=== PATIENT | female | born 1965 | race Caucasian/White ===

== ENCOUNTER 2018-01-01 10:12 | Emergency (ER) | payer OTHER ==
[~2018-01-01] VITALS: Ht 157.5 cm; Wt 72.7 kg
[2018-01-01 10:16] VITALS: Ht 157.5 cm; Wt 72.7 kg
[2018-01-01 10:48] LABS: BASOPHILS 0.1 % (0-2); HEMOGLOBIN 12.5 g/dL (12-16); IMMATURE GRANULOCYTES 0.1 % (0-5); MCH 30.4 pg (26.0-34.0); MCHC 33.8 g/dL (31.0-37.0); MEAN PLATELET VOLUME 10.1 fL (7.4-10.4); MONOCYTES 6.4 % (2-11); NEUTROPHILS 78.4 % (40-80); PLATELET COUNT 185 10x3/uL (130-400); RBC 4.11 10x6/uL (4.00-5.40); WBC 7.3 10x3/uL (4.8-10.8)
[2018-01-01 11:03] LABS: APTT 27.2 SECONDS (22.8-39.4); INR 1.04 (0.85-1.17); PROTIME 13.2 SECONDS (11.6-15.0)
[2018-01-01 11:08] LABS: ALBUMIN 3.7 g/dL (3.4-5.0); ALKALINE PHOSPHATASE 65 U/L (46-116); ALT (SGPT) 19 U/L (10-68); BILIRUBIN - TOTAL 0.42 mg/dL (0.2-1.3); CALC OSMOLALITY 273 mosm/kg (275-300); CARBON DIOXIDE 26.6 mmol/L (21.0-32.0); CHLORIDE - SERUM 102 mmol/L (98-107); CREATININE - SERUM 0.7 mg/dL (0.6-1.3); GLUCOSE 96 mg/dL (74-106); POTASSIUM - SERUM 3.9 mmol/L (3.5-5.1); PROTEIN - SERUM 7.5 g/dL (6.4-8.2); SODIUM 138 mmol/L (136-145); UREA NITROGEN 8 mg/dL (7-18); eGFR NON AFRICAN AMERICAN > 90 mL/min (90-120)
[2018-01-01 11:24] LABS: CKMB 0.9 U/L (0.0-3.6); CREATINE KINASE 37 UL (21-215); MAGNESIUM - SERUM 1.7 mg/dL (1.8-2.4); TROPONIN-I < 0.017 ng/mL (0.000-0.060)
[2018-01-01 13:34] LABS: APPEARANCE CLEAR (CLEAR); BACTERIA FEW /hpf (NONE SEEN); BILIRUBIN NEGATIVE (NEGATIVE); COLOR YELLOW (YELLOW); EPITHELIAL CELLS RARE /hpf (0-5); GLUCOSE NEGATIVE (NEGATIVE); KETONE NEGATIVE (NEGATIVE); NITRITE NEGATIVE (NEGATIVE); PROTEIN NEGATIVE (NEGATIVE); SPECIFIC GRAVITY 1.015 (1.005-1.020); UROBILINOGEN NORMAL (NORMAL); WHITE CELLS - URINE 0-5 /hpf (0-5)
[2018-01-01 13:35] LABS: RED CELLS - URINE RARE /hpf (0-5)
[2018-01-01] MEDS ORDERED: MECLIZINE HCL25 MG PO (14:17)
[2018-01-01 15:42] VITALS: BP 135/86
== END 2018-01-01 14:46 | disposition home or self-care (01) ==
LOC: D.ER 10:12
PROVIDERS: Family Medicine
DX: R42 Dizziness and giddiness (principal); R11.0 Nausea

== ENCOUNTER → 2018-03-18 12:16 | Outpatient (CLI) | payer BC ==
[2018-01-01 10:16] VITALS: BMI 29.3
[~2018-03-18 12:16] MED LIST: MECLIZINE HCL25 MG PO
== END | disposition home or self-care (01) ==
LOC: D.US 12:16
DX: N92.6 Irregular menstruation, unspecified (principal)

== ENCOUNTER → 2018-04-08 19:55 | Outpatient (CLI) | payer BC ==
[2018-01-01 10:16] VITALS: BMI 29.3
== END | disposition home or self-care (01) ==
LOC: D.MAMMO 15:45
DX: Z12.31 Encounter for screening mammogram for malignant neoplasm of breast (principal)